=== PATIENT | male | born 1955 | race Caucasian/White ===

== ENCOUNTER 2016-05-16 13:14 | Emergency (ER) | payer MEDICAID ==
[~2016-05-16] VITALS: Ht 160 cm; Wt 74.8 kg
[~2016-05-16 13:14] MED LIST: CARDIZEM60 MG PO; CORDARONE200 MG PO
[2016-05-16 13:18] VITALS: BP 110/61
--- NOTE | 2016-05-16 13:51 | NUR ---
PT AMBULATED TO BED 6 AT THIS TIME.
[2016-05-16] MEDS ORDERED: NACL 0.9% 1,000 ML IV ONE (13:55)
--- NOTE | 2016-05-16 13:59 | NUR ---
PATIENT PRESENTS TO ED WITH C/O PALPITATIONS X 3HRS AGO---UPCOMING APPT FOR CATH AND ANGIO MONDAY, DENIES N/V/D; SKIN IS PINK/WARM/DRY; AAOX4 WITH EVEN AND STEADY GAIT; LUNGS CLEAR BL; ST ON THE MONITOR PT DENIES ANY FEVER, CP, SOB, OR COUGH AT THIS TIME; PATIENT STATES PAIN OF 0/10 AT THIS TIME; VSS; PATIENT POSITIONED FOR COMFORT; HOB ELEVATED; BEDRAILS UP X2; BED DOWN. ER MD MADE AWARE OF PT STATUS.
[2016-05-16 17:04] VITALS: BP 107/62
--- NOTE | 2016-05-16 17:04 | NUR ---
Patient discharged with v/s stable. Written and verbal after care instructions given and explained. Patient verbalized understanding. Ambulatory with steady gait. All questions addressed prior to discharge. Advised to follow up with PMD.
== END 2016-05-16 17:04 | disposition home or self-care (01) ==
LOC: MED 13:14
DX: R00.2 Palpitations (principal); R00.0 Tachycardia, unspecified
CPT/HCPCS: 36415; 71010; 80053; 83880; 84484; 85025; 85610; 85730; 93005; 96360; 99285; J7030

== ENCOUNTER 2021-11-15 16:51 | Observation (INO) | payer MEDICAID, OTHER ==
[~2021-11-15] VITALS: Ht 157.5 cm; Wt 74.8 kg
[~2021-11-15 16:51] MED LIST changes: +AMIO200T PO; -CARDIZEM60 MG PO; -CORDARONE200 MG PO; +DILT60TA55 PO
[2021-11-15 16:58] VITALS: BP 143/72
[2021-11-15] MEDS ORDERED: ASPIRIN 81 MG TAB.CHEW PO ONE (17:20)
--- NOTE | 2021-11-15 17:28 | NUR ---
66YO MALE PT C/O INCONSISTENT DULL 5/10 CHEST PAIN XTHIS MORNING. DENIES RADIATION AND NOTES PAIN WHEN BREATHING IN. PT STATES HE HAD PREVIOUS SIMILIAR SYMPTOMS ALONG W/TACHYCARDIA AND LOC 8-9 YEARS AGO. PT WAS TOLD HE NEEDED POSSIBLE STENT BUT WENT WITHOUT TREATMENT. DENIES N/V/D , DIZZINESS, CHILLS , SOB OR FEVERS. PT AAOX4, AMBULATORY W/ STEADY GAIT. NO VISIBLE DISTRESS, RESPIRATOINS EVEN AND UNLABORED. PT ON COMPLIANCE MONITOR, BED AT LOWEST POSITION, BED RAILS UPX2. HX: DENIES NKA
--- NOTE | 2021-11-15 17:35 | NUR ---
66 y/o male bib self frome home, pt presents to ed with c/o chest pain that started 9 hours prior to arrival. pt describes pain as pressure sensation. denies nausea, vomiting, diarrhea. skin is pink/warm/dry. a&o x4 with even and steady gait. lungs clear bl, heart rate even and regular. pt denies dysuria, hematuria, urinary frequency or retention, or anyone sick in the household with the same symptoms. pt denies any fever, sob, or cough at this time. pt states pain is 5/10 at this time. patient positioned for comfort. hob elevated. bed down. ermd made aware of pt. pmh: denies nka med: denies
--- NOTE | 2021-11-15 17:48 | NUR ---
XRAY AT BEDSIDE
[2021-11-15 17:52] LABS: BASOPHILS % (AUTO) 0.6 % (0.0-2.0); EOSINOPHILS # (AUTO) 0.3 K/uL (0-0.4); EOSINOPHILS % (AUTO) 3.8 % (0.0-4.0); HEMATOCRIT 43.7 % (36-52); HEMOGLOBIN 14.9 g/dL (12.0-18.0); LYMPHOCYTES # (AUTO) 2.1 K/uL (2.0-11.5); LYMPHOCYTES % (AUTO) 28.8 % (20.5-51.1); MEAN CORPUSCULAR HEMOGLOBIN 30 pg (27-31); MEAN CORPUSCULAR HGB CONC 34 g/dL (33-37); MEAN CORPUSCULAR VOLUME 87.1 fL (80-94); MONOCYTES # (AUTO) 0.6 K/uL (0.8-1.0); NEUTROPHILS # (AUTO) 4.2 K/uL (1.8-7.7); NEUTROPHILS % (AUTO) 57.8 % (42.2-75.2); PLATELET COUNT (AUTO) 237 K/uL (140-450); RED BLOOD CELL COUNT(AUTO) 5.01 MIL/uL (4.20-6.10); RED CELL DISTRIBUTION WIDTH 12.6 % (11.6-13.7); WHITE BLOOD COUNT (AUTO) 7.2 K/uL (4.8-10.8)
--- NOTE | 2021-11-15 17:52 | NUR ---
PT SWABBED FOR COVID(SOY). WALKED AND HANDED TO LAB
[2021-11-15 18:07] LABS: ALBUMIN 3.9 g/dL (3.4-5.0); ANION GAP 11.5 (8-16); CARBON DIOXIDE 28.3 mmol/L (21-32); CREATININE 0.7 mg/dL (0.6-1.3); POTASSIUM 3.8 mmol/L (3.5-5.1); TOTAL BILIRUBIN 0.2 mg/dL (0.0-1.0)
--- NOTE | 2021-11-15 18:12 | NUR ---
PT REPORTS RELIEF. DENIES CHEST PAIN AT THIS TIME
--- NOTE | 2021-11-15 18:50 | NUR ---
PT REPORTS NEW ONSET OF CHEST PAIN. MD MADE AWARE
[2021-11-15] MEDS ORDERED: KETOROLAC 30 MG/ML VIAL IVP ONE (19:05)
--- NOTE | 2021-11-15 19:19 | NUR ---
REPORT GIVEN TO LEO IPNEDA. ALL QUESTIONS ANSWERED. TRANSFER OF CARE AT THIS TIME
[2021-11-15] MEDS ORDERED: ACETAMINOPHEN 325 MG TAB PO PRN (19:20)
[2021-11-15] MEDS ORDERED: HYDROcodone/APAP 5/325 MG 1 TAB TAB PO PRN (19:20)
[2021-11-15] MEDS ORDERED: MORPHINE SULFATE 4 MG/ML SYR IVP PRN (19:20)
[2021-11-15] MEDS ORDERED: KCL 20 MEQ/WATER INJ PREMIX 200 ML IV PRN (19:20)
[2021-11-15] MEDS ORDERED: MAG SULF 2000 MG/WATER PREMIX 50 ML IV PRN (19:20)
[2021-11-15] MEDS ORDERED: ONDANSETRON 4 MG/2 ML VIAL IVP PRN (19:20)
[2021-11-15] MEDS ORDERED: POTASSIUM CHLORIDE 10 MEQ TABER PO PRN (19:20)
[2021-11-15] MEDS ORDERED: MAGNESIUM OXIDE 400 MG TAB PO PRN (19:20)
--- NOTE | 2021-11-15 19:24 | NUR ---
LAB AT BEDSIDE.
--- NOTE | 2021-11-15 20:16 | NUR ---
Patient will be admitted to care of DR CAST. Admited to TELE. Will go to room 122B. Belongings list completed. Report to MIRIAM JACOBS.
--- NOTE | 2021-11-15 20:20 | NUR ---
RECEIVED PT FROM ER AND ADMITTED TO [facility], PT ARRIVE AT [facility] BY WHEELCHAIR. AWAKE, ALERT AND ORIENTED X 4. PT ABLE TO VERBALIZED NEEDS. NOT IN SOB OR DISTRESS. RESPIRATION EVEN AND BILATERAL LUNGS SOUND CLEAR. NO COUGH. PT DENIES OF HEADACHE OR DIZZINESS. PT VERBALIZES OF MILD CHEST PAIN OF 2/10. PT DENIES OF HAVING DIFFICULTY OF BREATHING. SALINE LOCK PRESENT ON LEFT AC WITH 18G. SKIN INTACT, NO SKIN PROBLEM. PT HAS A STEADY GAIT AND ABLE TO TRANSFERRED TO OWN BED FROM WHEELCHAIR. HE AMBULATES TO RESTROOM INDEPENDENTLY AND SELF HELP FOR HIS ADLS. ORIENT PATIENT TO HIS ROOM AND SURROUNDING AND HOW TO USE PHONE AND REMOTES FOR LIGHT AND TV. PT UNDERSTOOD AND COOPERATIVE. CALL LIGHT WITHIN THE REACH. INITIAL VITAL SIGNS: B/P-151/85, P-56, T-97.5, R-18, O2 SAT-95% ROOM AIR.
--- NOTE | 2021-11-15 21:00 | NUR ---
PT CONSUMED 100% OF SANDWICH AND DRINK OFFERED PT VERBALIZED NOT ABLE TO HAVE DINNER.
[2021-11-16 04:00] VITALS: BP 123/73
[2021-11-16 05:51] LABS: BASOPHILS % (AUTO) 0.6 % (0.0-2.0); EOSINOPHILS # (AUTO) 0.3 K/uL (0-0.4); EOSINOPHILS % (AUTO) 5.1 % (0.0-4.0); HEMATOCRIT 42.4 % (36-52); HEMOGLOBIN 14.3 g/dL (12.0-18.0); LYMPHOCYTES # (AUTO) 2.3 K/uL (2.0-11.5); MEAN CORPUSCULAR HEMOGLOBIN 30 pg (27-31); MEAN CORPUSCULAR HGB CONC 34 g/dL (33-37); MEAN CORPUSCULAR VOLUME 88.2 fL (80-94); MONOCYTES # (AUTO) 0.6 K/uL (0.8-1.0); MONOCYTES % (AUTO) 9.7 % (1.7-9.3); NEUTROPHILS # (AUTO) 3.1 K/uL (1.8-7.7); NEUTROPHILS % (AUTO) 48.6 % (42.2-75.2); PLATELET COUNT (AUTO) 227 K/uL (140-450); RED CELL DISTRIBUTION WIDTH 12.7 % (11.6-13.7); WHITE BLOOD COUNT (AUTO) 6.5 K/uL (4.8-10.8)
--- NOTE | 2021-11-16 06:00 | NUR ---
PT SLEEPS WELL VERBALIZED OF NO CHEST PAIN (0/10).
[2021-11-16 06:08] LABS: ANION GAP 11.7 (8-16); CARBON DIOXIDE 27.3 mmol/L (21-32); CREATININE 0.9 mg/dL (0.6-1.3)
--- NOTE | 2021-11-16 07:32 | NUR ---
RECEIVED PATIENT FROM [facility]URNACE HELPER NURSE FOR CONTINUITY OF CARE. PT IS AOX4, ABLE TO MAKE NEEDS KNOWN. RESPIRATIONS EVEN AND UNLABORED. ON ROOM AIR AND NO DISTRESS NOTED. SKIN IS WARM, DRY, AND INTACT. IV SITE ON LAC 18G. SALINE LOCKED. DENIES PAIN AT THE MOMENT. PLAN OF CARE DISCUSSED. SAFETY PRECAUTIONS IN PLACE. CALL LIGHT WITHIN REACH. WILL CONTINUE TO MONITOR.
--- NOTE | 2021-11-16 07:34 | NUR ---
PT IS ON STABLE CONDITION. SALINE LOCK ON LEFT AC INTACT & PATENT. ALL SAFETY MEASURES IN PLACE. CALL LIGHT WITHIN THE REACH. ENDORSED TO DAY SHIFT NURSE FOR CONTINUITY OF PT CARE.
[2021-11-16 08:00] VITALS: BP 123/74
--- NOTE | 2021-11-16 08:50 | NUR ---
PATIENT HAS BEEN SCREENED AND CATEGORIZED LOW NUTRITION RISK. PATIENT WILL BE SEEN WITHIN 7 DAYS OF ADMISSION. 11/22/21 REFERRAL RECEIVED NOT APPLICABLE [address]
[2021-11-16] MEDS ORDERED: ENOXAPARIN 40 MG/0.4 ML SYR SUBQ SCH (09:00)
--- NOTE | 2021-11-16 09:30 | NUR ---
ALL SCHEDULED MEDS GIVEN. PT IS STABLE. NO DISTRESS NOTED. WILL CONTINUE TO MONITOR.
--- NOTE | 2021-11-16 11:25 | NUR ---
CHECKED ON PATIENT. PT DENIES PAIN. NO DISTRESS NOTED. WILL CONTINUE TO MONITOR.
[2021-11-16 12:00] VITALS: BP 127/64
[2021-11-16 14:47] VITALS: BP 120/65
--- NOTE | 2021-11-16 15:00 | NUR ---
ENDORSED DISCHARGE INSTRUCTIONS TO PATIENT. PT VERBALIZED UNDERSTANDING AND SIGNED DISCHARGE FORMS
--- NOTE | 2021-11-16 15:05 | NUR ---
PATIENT DISCHARGED OFF THE UNIT. REMOVED ID WRISTBAND AND IV CATH. PT WAS STABLE PRIOR TO DISCHARGE.
== END 2021-11-16 15:05 | disposition home or self-care (01) ==
LOC: MED 16:51 → MTU 19:17 → UNDOADMIN 19:17
PROVIDERS: ADMIT Hospitalist; ATTEND Hospitalist
DX: R07.89 Other chest pain (principal); Z20.822 Contact with and (suspected) exposure to COVID-19; I25.10 Atherosclerotic heart disease of native coronary artery without angina pectoris; I10 Essential (primary) hypertension; Z79.899 Other long term (current) drug therapy
CPT/HCPCS: 36415; 71045; 80048; 80053; 83880; 84484; 85025; 87081; 87426; 93005; 96372; 96374; 99285; G0378; J1650; J1885; Q0092

== ENCOUNTER 2022-10-05 09:15 | Day surgery (SDC) | payer OTHER ==
[~2022-10-05] VITALS: Ht 132.1 cm; Wt 81.6 kg
[2022-10-05] MEDS ORDERED: diphenhydrAMINE 50 MG/ML VIAL ONE (10:17)
[2022-10-05] MEDS ORDERED: fentaNYL citrate 0.05 MG/ML VIAL ONE (10:17)
[2022-10-05] MEDS ORDERED: LIDOCAINE 2% 100 MG/5 ML UJET TP ONE (10:17)
[2022-10-05] MEDS ORDERED: MIDAZOLAM 5 MG/5 ML VIAL ONE (10:17)
[2022-10-05] MEDS ORDERED: fentaNYL citrate 0.05 MG/ML VIAL IVP ONE (11:25)
[2022-10-05] MEDS ORDERED: MIDAZOLAM 2 MG/2 ML VIAL IVP ONE (11:25)
== END 2022-10-05 11:45 | disposition home or self-care (01) ==
LOC: MDS 09:15 → MMU 09:37 → MDS 11:45
PROVIDERS: ATTEND Internal Medicine Gastroenterology
DX: Z12.11 Encounter for screening for malignant neoplasm of colon (principal); D12.2 Benign neoplasm of ascending colon; K57.30 Diverticulosis of large intestine without perforation or abscess without bleeding
CPT/HCPCS: 45385; J2250; J3010; J1200

== ENCOUNTER 2022-10-14 17:24 | Emergency (ER) | payer OTHER ==
[~2022-10-14] VITALS: Ht 167.6 cm; Wt 79.8 kg
[2022-10-14 17:38] VITALS: BP 132/82; PULSE 67; RESP 20; TEMP 98.6; O2SAT 98
[2022-10-14] MEDS ORDERED: ALBUTEROL SULFATE/IPRATROPIU 3 ML SOL IH ONE (19:30)
[2022-10-14] MEDS ORDERED: predniSONE 20 MG TAB PO ONE (19:30)
--- NOTE | 2022-10-14 19:41 | NUR ---
PT PLACED IN YANG AND MEDICATED PER MD ORDERS. RT MADE AWARE OF BREATHING TX.
--- NOTE | 2022-10-14 19:46 | NUR ---
RT AT CHAIR SIDE FOR BREATHING TX.
[2022-10-14 19:48] VITALS: PULSE 60; RESP 16; O2SAT 99
[2022-10-14] MEDS ORDERED: ALBU6.7H6 IH (20:07)
[2022-10-14] MEDS ORDERED: METH4TAB1 PO (20:07)
[2022-10-14 20:15] VITALS: BP 132/82; PULSE 60; RESP 16; TEMP 98.6; O2SAT 99
--- NOTE | 2022-10-14 20:15 | NUR ---
D/C BY PRESCRIBED PROVENTIL HFA, MEDROL DOSEPAK
== END 2022-10-14 20:14 | disposition home or self-care (01) ==
LOC: MED 17:24
DX: T65.91XA Toxic effect of unspecified substance, accidental (unintentional), initial encounter (principal); Z79.899 Other long term (current) drug therapy; Y92.89 Other specified places as the place of occurrence of the external cause
CPT/HCPCS: 99283; J7512; 94640